=== PATIENT | male | born 2000 | race Caucasian/White ===

== ENCOUNTER 2018-05-10 12:45 | Outpatient (CLI) | payer MEDICAID, OTHER ==
[2018-05-10 18:07] LABS: CHOL/HDL RATIO 3.8 (<5.0); CHOLESTEROL 148 mg/dL; HDL CHOLESTEROL 39 mg/dL; LDL CHOLESTEROL,CALCULATED 95 mg/dL; LDL/HDL RATIO 2.4 (<3.6); VLDL CHOLESTEROL 14 mg/dL
== END 2018-05-10 12:46 | disposition home or self-care (01) ==
LOC: LAB.R 12:45
PROVIDERS: ATTEND Pediatrics
DX: Z83.49 Family history of other endocrine, nutritional and metabolic diseases (principal)
CPT/HCPCS: 80061; 83721